=== PATIENT | female | born 1990 | race African-American/Black ===

== ENCOUNTER 2019-09-15 01:04 | Emergency (ER) | payer SELFPAY ==
[~2019-09-15] VITALS: Ht 165.1 cm; Wt 79.5 kg
[2019-09-15 01:13] VITALS: BP 135/70
== END 2019-09-15 03:17 | disposition left against medical advice (07) ==
LOC: ER 01:04
DX: R50.9 Fever, unspecified (principal); Z53.21 Procedure and treatment not carried out due to patient leaving prior to being seen by health care provider